=== PATIENT | male | born 1960 | race Caucasian/White ===

== ENCOUNTER 2017-03-11 22:33 | Emergency (ER) | payer OTHER ==
[2017-03-11 23:32] VITALS: BP 130/61
== END 2017-03-11 23:32 | disposition home or self-care (01) ==
LOC: ED 22:33
DX: S62.366A Nondisplaced fracture of neck of fifth metacarpal bone, right hand, initial encounter for closed fracture (principal); Z88.5 Allergy status to narcotic agent; W22.8XXA Striking against or struck by other objects, initial encounter; Y93.89 Activity, other specified; Y92.89 Other specified places as the place of occurrence of the external cause; Y99.8 Other external cause status